=== PATIENT | female | born 1975 | race Caucasian/White ===

== ENCOUNTER 2018-10-13 10:59 | Emergency (ER) | payer MEDICAID ==
[~2018-10-13] VITALS: Ht 162.6 cm; Wt 75.0 kg
[~2018-10-13 10:59] MED LIST: ATIVAN; PROZAC
[2018-10-13] MEDS ORDERED: ONDANSETRON HCL 4MG/2ML INJ IV STA (11:51)
[2018-10-13] MEDS ORDERED: SODIUM CHLORIDE 0.9% 1,000 ML IV ONE (11:51)
[2018-10-13 12:20] LABS: PROTHROMBIN TIME 10.5 sec (9.6-11.0)
[2018-10-13 12:33] LABS: CHLORIDE 108 mEq/L (98-107)
[2018-10-13 12:34] LABS: BASOPHILS % 0.7 % (0.0-2.0); EOSINOPHILS % 0.4 % (0.0-5.0); HEMATOCRIT. 46.4 % (36.0-48.0); HEMOGLOBIN. 16.5 g/dL (12.0-16.0); LYMPHOCYTES % 34.5 % (20.0-50.0); MEAN CORPUSCULAR HEMOGLOBIN 32.4 pg (28.0-32.0); MEAN CORPUSCULAR VOLUME 91.4 fL (81.0-99.0); MONOCYTES % 13.3 % (2.0-8.0); NEUTROPHILS % 51.1 % (40.0-76.0); PLATELET 230 x1000/uL (130-400); RED BLOOD CELL COUNT 5.07 mill/uL (4.2-5.4); RED CELL DISTRIBUTION WIDTH 12.9 % (11.6-14.6)
[2018-10-13] MEDS ORDERED: METRONIDAZOLE 500MG TABLET PO ONE (13:30)
[2018-10-13] MEDS ORDERED: POTASSIUM CHLORIDE 20MEQ TABLET SR PO NR (13:30)
[2018-10-13 13:35] VITALS: BP 125/48
== END 2018-10-13 13:45 | disposition home or self-care (01) ==
LOC: ER 10:59
DX: E87.6 Hypokalemia (principal); R19.7 Diarrhea, unspecified; R10.31 Right lower quadrant pain
CPT/HCPCS: 36415; 80053; 83690; 85025; 85610; 96361; 96374; 99283; J2405; J7030; Z7610